=== PATIENT | female | born 1975 | race Caucasian/White ===

== ENCOUNTER 2018-05-31 10:30 | Emergency (ER) | payer OTHER, MEDICAID ==
[~2018-05-31] VITALS: Ht 157.5 cm; Wt 69.0 kg
[2018-05-31] MEDS ORDERED: NORVASC10 MG PO (10:41)
[2018-05-31] MEDS ORDERED: COZAAR 50 MG TA50 M1 PO (10:41)
[2018-05-31] MEDS ORDERED: GOLYTELY4000 M1 PO (11:26)
[2018-05-31 11:37] VITALS: BP 118/72
== END 2018-05-31 11:38 | disposition home or self-care (01) ==
LOC: M.ERS 10:30
DX: K59.00 Constipation, unspecified (principal); I10 Essential (primary) hypertension